=== PATIENT | female | born 1970 | race African-American/Black ===

== ENCOUNTER → 2020-01-11 | Outpatient (CLI) | payer OTHER | LOC: M.RAD 11:58 | PROVIDERS: ATTEND Internal Medicine | DX: J06.9 Acute upper respiratory infection, unspecified (principal) ==

== ENCOUNTER → 2020-09-03 | Outpatient (CLI) | payer OTHER | LOC: M.RAD 12:28 | PROVIDERS: ATTEND Family Medicine | DX: Z12.31 Encounter for screening mammogram for malignant neoplasm of breast (principal) ==